=== PATIENT | female | born 1960 | race Caucasian/White ===

== ENCOUNTER 2017-02-11 13:57 | Emergency (ER) | payer BC ==
[~2017-02-11] VITALS: Ht 180.3 cm; Wt 110.0 kg
[2017-02-11 13:59] VITALS: BP 145/81; PULSE 78; RESP 16; TEMP 97.8; O2SAT 98
--- NOTE | 2017-02-11 16:47 | PD ---
HPI Chief Complaint: Edema Time Seen by Provider: 16:17 Travel History International Travel<30 days: No Contact w/Intl Traveler<30days: No Traveled to known affect area: No History of Present Illness HPI 56-year-old female came to the emergency room with history of bilateral pedal edema that has been there for past 2-3 days. Patient is vacationing in [place] and drove from [facility] 2 weeks ago. 3 days ago she was on the beach and got sunburned. Since then she has noticed the swelling of her legs and feet. Patient also has recently been diagnosed with breast cancer. She is not going through any treatment yet. She is not on any medications on a daily basis. Vital signs were stable. No history of shortness of breath or chest pain. [facility] Past Medical History Narrative Medical List of her past medical, surgical, social and family history reviewed from the nursing note. Diminished Hearing: No Medical other: Yes (BREAST CA ) Tetanus Vaccination: > 5 Years Influenza Vaccination: No ?: Not Past Surgical History Abdominal Surgery: Yes Cholecystectomy: Yes Social History Alcohol Use: Yes (OCASSIONALLY ) Tobacco Use: Yes (1O CIGARRETTES PER DAY) Substance Use: No (PT DENIES ) Allergies-Medications (Allergen,Severity, Reaction): Coded Allergies: No Known Allergies (Unverified , 02/11/17) Comments No known drug allergies. Reported Meds & Prescriptions Reported Meds & Active Scripts Active Lasix (Furosemide) 40 Mg Tab 40 Mg PO DAILY Narrative Medication List of her home medications reviewed from the nursing note. Review of Systems Except as stated in HPI: all other systems reviewed are Neg Physical Exam Narrative GENERAL: Awake, alert, no obvious distress SKIN: Focused skin assessment warm/dry. Sunburn generalized. HEAD: Atraumatic. Normocephalic. EYES: Pupils equal and round. No scleral icterus. No injection or drainage. ENT: No nasal bleeding or discharge. Mucous membranes pink and moist. NECK: Trachea midline. No JVD. CARDIOVASCULAR: Regular rate and rhythm. No murmur appreciated. RESPIRATORY: No accessory muscle use. Clear to auscultation. Breath sounds equal bilaterally. GASTROINTESTINAL: Abdomen soft, non-tender, nondistended. Hepatic and splenic margins not palpable. MUSCULOSKELETAL: No obvious deformities. No clubbing. No cyanosis. Bilateral 1 + nonpitting edema. NEUROLOGICAL: Awake and alert. No obvious cranial nerve deficits. Motor grossly within normal limits. Normal speech. PSYCHIATRIC: Appropriate mood and affect; insight and judgment normal. Data Data Last Documented VS Orders Complete Blood Count With Diff (02/11/17 16:53) Basic Metabolic Panel (Bmp) (02/11/17 16:53) B-Type Natriuretic Peptide (02/11/17 16:53) Us Leg Venous Doppler Bilat (02/11/17 ) MDM Medical Decision Making Medical Screen Exam Complete: Yes Emergency Medical Condition: Yes Medical Record Reviewed: Yes Differential Diagnosis Dependent edema, DVT Narrative Course 5:08 PM awaiting for blood test result. Awaiting for the ultrasound of bilateral legs to be done and resulted since patient has moderate risk factor. Case has been signed over to the oncoming ER physician. Procedures EKG Prior to Arrival: No Scripts Furosemide (Lasix)40 Mg Tab40 Mg PO DAILY #10 TAB Prov:Juno Zabala MD 02/11/17 Ulisses Stanley MD Feb 11, 2017 16:47 5:08 PM awaiting for blood test result. Awaiting for the ultrasound of bilateral legs to be done and resulted since patient has moderate risk factor. Case has been signed over to the oncoming ER physician. Procedures EKG Prior to Arrival: No Scripts No Active Prescriptions or Reported Meds Ulisses Stanley MD Feb 11, 2017 16:47
[2017-02-11 17:18] LABS: AUTOMATED NEUTROPHIL # 4.7 TH/MM3 (1.8-7.7); BASOPHIL # 0.2 TH/MM3 (0-0.2); BASOPHIL % 2.8 % (0.0-2.0); EOSINOPHIL # 0.2 TH/MM3 (0-0.4); EOSINOPHIL % 2.7 % (0.0-4.0); HEMATOCRIT 36.3 % (35.0-46.0); HEMO FLAGS DIFF FINAL; LYMPH % 26.8 % (9.0-44.0); LYMPHOCYTE # 2.1 TH/MM3 (1.0-4.8); MEAN CORPUSCULAR HEMOGLOBIN 35.6 PG (27.0-34.0); MEAN CORPUSCULAR HGB CONC 35.2 % (32.0-36.0); MONO % 6.5 % (0.0-8.0); NEUT % 61.2 % (16.0-70.0); PLATELET COUNT 205 TH/MM3 (150-450); RED BLOOD COUNT 3.59 MIL/MM3 (4.00-5.30); RED CELL DISTRIBUTION WIDTH 13.7 % (11.6-17.2); WHITE BLOOD COUNT 7.7 TH/MM3 (4.0-11.0)
[2017-02-11 17:47] LABS: BICARBONATE 27.2 MEQ/L (21.0-32.0); POTASSIUM 3.7 MEQ/L (3.5-5.1)
[2017-02-11 18:00] VITALS: BP 138/81; PULSE 76; RESP 16; TEMP 97.8; O2SAT 99
--- NOTE | 2017-02-11 19:18 | RADRPT ---
EXAM DATE/TIME: 02/11/2017 18:34 [facility] COMPARISON: No previous studies available for comparison. INDICATIONS : Bilateral leg edema. MEDICAL HISTORY : Carcinoma, breast. Chemotherapy. Bilateral leg swelling and edema. SURGICAL HISTORY : Cholecystectomy. ENCOUNTER: Initial ACUITY: 1 day PAIN SCORE: 6/10 LOCATION: Bilateral leg. TECHNIQUE: Venous ultrasound of the left and right leg was performed from the inguinal ligament to the proximal calf. Real-time, color Doppler and spectral tracing, compression and augmentation techniques were us ed. FINDINGS: RIGHT LEG: There is normal compressibility of the deep venous system from the inguinal region to the proximal ca lf. No echogenic clot is seen in the lumen of the common femoral, femoral, popliteal, and posterior tibial veins. There is a normal response of the venous system to proximal and distal augmentation an d respiration. LEFT LEG: There is normal compressibility of the deep venous system from the inguinal region to the proximal ca lf. No echogenic clot is seen in the lumen of the common femoral, femoral, popliteal, and posterior tibial veins. There is a normal response of the venous system to proximal and distal augmentation an d respiration. CONCLUSION: Normal examination. Paul Hardy MD on February 11, 2017 at 19:16 Board Certified Radiologist. This report was verified electronically.
[2017-02-11] MEDS ORDERED: FURO1TAB60 PO (19:28)
--- NOTE | 2017-02-11 19:28 | PD ---
Data Data Last Documented VS Vital Signs Date Time Temp Pulse Resp B/P Pulse Ox O2 Delivery O2 Flow Rate FiO2 02/11/17 18:00 97.8 76 16 138/81 99 Room Air Orders Complete Blood Count With Diff (02/11/17 16:53) Basic Metabolic Panel (Bmp) (02/11/17 16:53) B-Type Natriuretic Peptide (02/11/17 16:53) Us Leg Venous Doppler Bilat (02/11/17 ) Labs Laboratory Tests Test 02/11/17 17:00 White Blood Count 7.7 TH/MM3 Red Blood Count 3.59 MIL/MM3 Hemoglobin 12.8 GM/DL Hematocrit 36.3 % Mean Corpuscular Volume 101.0 FL Mean Corpuscular Hemoglobin 35.6 PG Mean Corpuscular Hemoglobin 35.2 % Concent Red Cell Distribution Width 13.7 % Platelet Count 205 TH/MM3 Mean Platelet Volume 9.8 FL Neutrophils (%) (Auto) 61.2 % Lymphocytes (%) (Auto) 26.8 % Monocytes (%) (Auto) 6.5 % Eosinophils (%) (Auto) 2.7 % Basophils (%) (Auto) 2.8 % Neutrophils # (Auto) 4.7 TH/MM3 Lymphocytes # (Auto) 2.1 TH/MM3 Monocytes # (Auto) 0.5 TH/MM3 Eosinophils # (Auto) 0.2 TH/MM3 Basophils # (Auto) 0.2 TH/MM3 CBC Comment DIFF FINAL Differential Comment Sodium Level 137 MEQ/L Potassium Level 3.7 MEQ/L Chloride Level 102 MEQ/L Carbon Dioxide Level 27.2 MEQ/L Anion Gap 8 MEQ/L Blood Urea Nitrogen 17 MG/DL Creatinine 0.81 MG/DL Estimat Glomerular Filtration 74 ML/MIN Rate Random Glucose 124 MG/DL Calcium Level 8.9 MG/DL B-Type Natriuretic Peptide 44 PG/ML [facility] Medical Record Reviewed: Yes Supervised Visit with DAYNA: No Diagnosis Primary Impression: PERIPHERAL EDEMA, BILATERAL Scripts Furosemide (Lasix)40 Mg Tab40 Mg PO DAILY #10 TAB Prov:Juno Zabala MD 02/11/17 Disposition: 01 DISCHARGE HOME Condition: Stable Juno Zabala MD Feb 11, 2017 19:28
== END 2017-02-11 20:00 | disposition home or self-care (01) ==
LOC: NEPD 13:57
DX: R60.0 Localized edema (principal); C50.919 Malignant neoplasm of unspecified site of unspecified female breast; F17.210 Nicotine dependence, cigarettes, uncomplicated
CPT/HCPCS: 80048; 83880; 85025; 93970